=== PATIENT | male | born 1950 | race Caucasian/White ===

== ENCOUNTER 2023-06-03 23:11 | Inpatient (IN) | payer MEDICARE, OTHER ==
[~2023-06-03] VITALS: Ht 175.3 cm; Wt 122.5 kg
[2023-06-03] MEDS ORDERED: CLOP75TA15 PO (23:31)
[2023-06-03 23:57] LABS: BASOPHILS % (AUTO) 0.3 % (0.0-2.0); EOSINOPHILS # (AUTO) 0.1 K/uL (0.0-0.7); EOSINOPHILS % (AUTO) 0.6 % (0.0-7.0); HEMATOCRIT 38.3 % (36.7-47.1); HEMOGLOBIN 12.1 g/dL (12.5-16.3); LYMPHOCYTES # (AUTO) 1.5 K/uL (0.8-4.8); LYMPHOCYTES % (AUTO) 12.9 % (20.5-51.5); MEAN CORPUSCULAR HEMOGLOBIN 32.2 uug (23.8-33.4); MEAN CORPUSCULAR HGB CONC 32 g/dL (32.5-36.3); MONOCYTES # (AUTO) 1.1 K/uL (0.1-1.30); MONOCYTES % (AUTO) 9.4 % (0.0-11.0); NEUTROPHILS # (AUTO) 8.7 K/uL (1.8-8.9); NEUTROPHILS % (AUTO) 76.8 % (38.5-71.5); PLATELET COUNT (AUTO) 96 K/uL (152-348); RED BLOOD CELL COUNT(AUTO) 3.76 MIL/uL (4.06-5.63); RED CELL DISTRIBUTION WIDTH 15.5 % (12.1-16.2); WHITE BLOOD COUNT (AUTO) 11.3 K/uL (3.6-10.2)
[2023-06-04 00:04] LABS: CALCIUM 9.3 mg/dL (8.5-10.1); CARBON DIOXIDE 26 mmol/L (21-32); CHLORIDE 105 mmol/L (98-107); CREATININE 2.4 mg/dL (0.6-1.3); GLUCOSE 90 mg/dL (74-106); POTASSIUM 4.2 mmol/L (3.5-5.1); SODIUM SERUM 139 mmol/L (136-145); UREA NITROGEN, BLOOD 41 mg/dL (7-18)
[2023-06-04 00:11] LABS: DIFFERENTIAL COMMENT 1
[2023-06-04 00:12] LABS: ALANINE AMINOTRANSFERASE 74 U/L (16-63); ALBUMIN 2.9 g/dL (3.4-5.0); ALKALINE PHOSPHATASE 137 U/L (50-136); ASPARTATE AMINOTRANSFERASE 47 U/L (15-37); BILIRUBIN,DIRECT 0.4 mg/dL (0.0-0.2); BILIRUBIN,TOTAL 0.7 mg/dL (0.2-1.0); TOTAL PROTEIN, SERUM 7.2 g/dL (6.4-8.2)
[2023-06-04] MEDS ORDERED: IV NS 1000 ML 1,000 ML IV ONE (02:00)
[2023-06-04 02:12] LABS: ETHANOL < 3 MG/DL (0-10)
[2023-06-04 10:19] LABS: *BILIRUBIN,URIN NEGATIVE (NEGATIVE); *BLOOD, URINE 1+ (NEGATIVE); *CLARITY,URINE CLEAR (CLEAR); *COLOR,URINE YELLOW (YELLOW); *KETONES,URINE NEGATIVE (NEGATIVE); *PROTEIN,URINE 2+ (NEGATIVE); *UROBILINOGEN,URINE 0.2 E.U./dl (NORMAL); LEUKOCYTE ESTERASE ,URINE 1+ (NEGATIVE); NITRITE, URINE POSITIVE (NEGATIVE); UGLUCOSE NEGATIVE (NEGATIVE)
[2023-06-04 11:04] LABS: BACTERIA,URINE MANY /HPF (NONE SEEN); SQUAMOUS EPITHELIAL CELL,UR FEW /HPF (NONE SEEN); WBC,URINE 20-50 /HPF (0-3)
[2023-06-04] MEDS ORDERED: LOPERAMIDE HCL 2 MG CAPSULE PO ONE (14:00)
[2023-06-04] MEDS ORDERED: LOPERAMIDE HCL 2 MG CAPSULE ONE (14:15)
[2023-06-04 16:04] VITALS: BP 152/72; TEMP 98.9; O2SAT 96
[2023-06-04] MEDS ORDERED: ACETAMINOPHEN 325 MG TABLET PO PRN (16:15)
[2023-06-04] MEDS ORDERED: ONDANSETRON 4 MG/2 ML VIAL IV PRN (16:15)
[2023-06-04] MEDS ORDERED: OMEG-49 PO (16:20)
[2023-06-04] MEDS ORDERED: ATOR40TA PO (16:29)
[2023-06-04] MEDS ORDERED: AMIO100T4 PO (16:29)
[2023-06-04] MEDS ORDERED: CARV12.5 PO (16:29)
[2023-06-04] MEDS ORDERED: ASCO500P18 PO (16:29)
[2023-06-04] MEDS ORDERED: ALLO100T PO (16:29)
[2023-06-04] MEDS ORDERED: FURO-151 PO (16:29)
[2023-06-04] MEDS ORDERED: LOSA25TA27 PO (16:29)
[2023-06-04] MEDS ORDERED: HYDR-894 PO (16:29)
[2023-06-04] MEDS ORDERED: ALPR0.5T8 PO (16:29)
[2023-06-04] MEDS ORDERED: PATI8.4P PO (16:36)
[2023-06-04] MEDS ORDERED: HYDR4TAB4 PO (16:36)
[2023-06-04] MEDS ORDERED: ASCO500T85 PO (16:39)
[2023-06-04] MEDS ORDERED: CYAN100085 PO (16:40)
[2023-06-04] MEDS: IV 1/2NS 1000 ML 1,000 ML IV PRN (17:02)
[2023-06-04] MEDS ORDERED: hydrALAZINE HCL 25 MG TABLET PO SCH (17:45)
[2023-06-04 20:00] VITALS: BP 102/58; TEMP 98.4; O2SAT 94
[2023-06-04] MEDS ORDERED: CARVEDILOL 6.25 MG TABLET PO SCH (21:00)
[2023-06-04] MEDS ORDERED: CEFTRIAXONE 1 G in IV DEXTROSE 5% 50 ML IV SCH (21:16)
[2023-06-04] MEDS: HYDROMORPHONE HCL 2 MG TABLET PO PRN (21:26)
[2023-06-04] MEDS: ATORVASTATIN 40 MG TABLET PO SCH (21:26)
[2023-06-04] MEDS ORDERED: CEFTRIAXONE /D5W 50ML IVPB **ER PYXIS IV ONE (21:49)
[2023-06-05] MEDS: ALPRAZOLAM 0.5 MG TABLET PO PRN (00:24)
[2023-06-05] MEDS: HYDROMORPHONE HCL 2 MG TABLET PO PRN ×2 (03:41→13:40)
[2023-06-05 04:00] VITALS: BP 125/73; TEMP 98.2; O2SAT 96
[2023-06-05] MEDS: IV 1/2NS 1000 ML 1,000 ML IV PRN (04:38)
[2023-06-05] MEDS: PANTOPRAZOLE SODIUM 40 MG TABLET.DR PO SCH (06:23)
[2023-06-05 07:04] LABS: BASOPHILS % (AUTO) 0.3 % (0.0-2.0); EOSINOPHILS # (AUTO) 0.1 K/uL (0.0-0.7); EOSINOPHILS % (AUTO) 0.9 % (0.0-7.0); HEMATOCRIT 36.8 % (36.7-47.1); LYMPHOCYTES # (AUTO) 1.7 K/uL (0.8-4.8); LYMPHOCYTES % (AUTO) 18.7 % (20.5-51.5); MEAN CORPUSCULAR HEMOGLOBIN 32.8 uug (23.8-33.4); MEAN CORPUSCULAR HGB CONC 33 g/dL (32.5-36.3); MEAN CORPUSCULAR VOLUME 100.6 fL (73.0-96.2); MONOCYTES # (AUTO) 0.7 K/uL (0.1-1.30); NEUTROPHILS # (AUTO) 6.7 K/uL (1.8-8.9); NEUTROPHILS % (AUTO) 72.1 % (38.5-71.5); PLATELET COUNT (AUTO) 92 K/uL (152-348); RED BLOOD CELL COUNT(AUTO) 3.66 MIL/uL (4.06-5.63); RED CELL DISTRIBUTION WIDTH 15.2 % (12.1-16.2); WHITE BLOOD COUNT (AUTO) 9.3 K/uL (3.6-10.2)
[2023-06-05 07:12] LABS: DIFFERENTIAL COMMENT 1
[2023-06-05 07:31] LABS: THYROID STIMULATING HORMONE 0.432 mIU/mL (0.358-3.740)
[2023-06-05 07:47] LABS: ALANINE AMINOTRANSFERASE 52 U/L (16-63); ALBUMIN 2.5 g/dL (3.4-5.0); ALKALINE PHOSPHATASE 112 U/L (50-136); ASPARTATE AMINOTRANSFERASE 30 U/L (15-37); BILIRUBIN,TOTAL 0.7 mg/dL (0.2-1.0); CALCIUM 8.6 mg/dL (8.5-10.1); CARBON DIOXIDE 25 mmol/L (21-32); CHLORIDE 108 mmol/L (98-107); CHOLESTEROL 86 mg/dL (<200); CREATININE 1.8 mg/dL (0.6-1.3); GLUCOSE 101 mg/dL (74-106); HDL CHOLESTEROL 37 mg/dL (40-60); MAGNESIUM 1.9 mg/dL (1.8-2.4); PHOSPHOROUS 2.4 mg/dL (2.5-4.9); SODIUM SERUM 141 mmol/L (136-145); TOTAL PROTEIN, SERUM 6.6 g/dL (6.4-8.2); TRIGLYCERIDES 63 MG/DL (30-150); UREA NITROGEN, BLOOD 26 mg/dL (7-18)
[2023-06-05 08:30] VITALS: BP 134/74; TEMP 98.6
[2023-06-05] MEDS: OMEGA-3 FATTY ACIDS/FISH OIL CAPSULE PO SCH (08:51)
[2023-06-05] MEDS: AMIODARONE HCL 200 MG TABLET PO SCH (08:51)
[2023-06-05] MEDS: ASPIRIN EC 81 MG TABLET.DR PO SCH (08:52)
[2023-06-05] MEDS: CYANOCOBALAMIN 1,000 MCG TABLET PO SCH (08:52)
[2023-06-05] MEDS: CLOPIDOGREL 75 MG TABLET PO SCH (08:59)
[2023-06-05] MEDS: CARVEDILOL 12.5 MG TABLET PO SCH ×2 (08:59→17:21)
[2023-06-05] MEDS ORDERED: CARVEDILOL 6.25 MG TABLET PO SCH (09:00)
[2023-06-05] MEDS: ALLOPURINOL 100 MG TABLET PO SCH (09:01)
[2023-06-05] MEDS: ASCORBIC ACID 500 MG TABLET PO SCH (09:02)
[2023-06-05 11:11] VITALS: BP 120/64; TEMP 98.3; O2SAT 95
[2023-06-05] MEDS: HYDROCODONE/APAP 5-325MG TABLET PO PRN (11:30)
[2023-06-05 15:46] VITALS: BP 115/51; TEMP 98.5; O2SAT 97
[2023-06-05] MEDS ORDERED: NEUTRA PHOS PACKET PO ONE (17:00)
[2023-06-05 19:51] VITALS: BP_SYST 118; BP_SYST 133; BP_DIAS 66; BP_DIAS 72; TEMP 97.5; O2SAT 98
[2023-06-05] MEDS: CEFTRIAXONE 2 G in IV DEXTROSE 5% 100 ML IV SCH (20:18)
[2023-06-05] MEDS: ATORVASTATIN 40 MG TABLET PO SCH (20:18)
[2023-06-06 00:04] VITALS: BP 112/58; TEMP 97.8; O2SAT 95
[2023-06-06] MEDS: HYDROMORPHONE HCL 2 MG TABLET PO PRN ×2 (01:54→20:26)
[2023-06-06] MEDS: IV 1/2NS 1000 ML 1,000 ML IV PRN (03:13)
[2023-06-06 05:52] VITALS: BP 131/60; TEMP 97.9; O2SAT 96
[2023-06-06] MEDS: PANTOPRAZOLE SODIUM 40 MG TABLET.DR PO SCH (06:07)
[2023-06-06 07:42] LABS: BASOPHILS % (AUTO) 0.5 % (0.0-2.0); EOSINOPHILS # (AUTO) 0.2 K/uL (0.0-0.7); EOSINOPHILS % (AUTO) 2.1 % (0.0-7.0); HEMATOCRIT 36.2 % (36.7-47.1); HEMOGLOBIN 11.9 g/dL (12.5-16.3); LYMPHOCYTES # (AUTO) 1.4 K/uL (0.8-4.8); LYMPHOCYTES % (AUTO) 18.5 % (20.5-51.5); MEAN CORPUSCULAR HEMOGLOBIN 33.2 uug (23.8-33.4); MEAN CORPUSCULAR HGB CONC 33 g/dL (32.5-36.3); MEAN CORPUSCULAR VOLUME 101.2 fL (73.0-96.2); MONOCYTES # (AUTO) 0.6 K/uL (0.1-1.30); MONOCYTES % (AUTO) 7.4 % (0.0-11.0); NEUTROPHILS # (AUTO) 5.4 K/uL (1.8-8.9); NEUTROPHILS % (AUTO) 71.5 % (38.5-71.5); PLATELET COUNT (AUTO) 91 K/uL (152-348); RED BLOOD CELL COUNT(AUTO) 3.57 MIL/uL (4.06-5.63); RED CELL DISTRIBUTION WIDTH 15.2 % (12.1-16.2); WHITE BLOOD COUNT (AUTO) 7.5 K/uL (3.6-10.2)
[2023-06-06 07:44] LABS: CALCIUM 8.2 mg/dL (8.5-10.1); CARBON DIOXIDE 25 mmol/L (21-32); CHLORIDE 106 mmol/L (98-107); CREATININE 1.6 mg/dL (0.6-1.3); GLUCOSE 91 mg/dL (74-106); MAGNESIUM 1.9 mg/dL (1.8-2.4); PHOSPHOROUS 2.8 mg/dL (2.5-4.9); SODIUM SERUM 139 mmol/L (136-145); UREA NITROGEN, BLOOD 21 mg/dL (7-18)
[2023-06-06 07:48] LABS: DIFFERENTIAL COMMENT 1
[2023-06-06] MEDS: ALLOPURINOL 100 MG TABLET PO SCH (08:16)
[2023-06-06] MEDS: CLOPIDOGREL 75 MG TABLET PO SCH (08:16)
[2023-06-06] MEDS: CARVEDILOL 12.5 MG TABLET PO SCH ×2 (08:16→17:22)
[2023-06-06] MEDS: OMEGA-3 FATTY ACIDS/FISH OIL CAPSULE PO SCH (08:16)
[2023-06-06] MEDS: CYANOCOBALAMIN 1,000 MCG TABLET PO SCH (08:16)
[2023-06-06] MEDS: ASCORBIC ACID 500 MG TABLET PO SCH (08:17)
[2023-06-06] MEDS: ASPIRIN EC 81 MG TABLET.DR PO SCH (08:17)
[2023-06-06] MEDS: HYDROCODONE/APAP 5-325MG TABLET PO PRN ×2 (08:17→12:47)
[2023-06-06] MEDS: AMIODARONE HCL 200 MG TABLET PO SCH (08:19)
[2023-06-06 12:00] VITALS: BP 121/52; TEMP 97.9; O2SAT 98
[2023-06-06 15:27] VITALS: BP 126/52; TEMP 97.7; O2SAT 98
[2023-06-06 20:00] VITALS: BP 127/54; TEMP 98.5; O2SAT 96
[2023-06-06] MEDS: ATORVASTATIN 40 MG TABLET PO SCH (20:20)
[2023-06-06] MEDS: CEFTRIAXONE 2 G in IV DEXTROSE 5% 100 ML IV SCH (20:20)
[2023-06-06] MEDS: ALPRAZOLAM 0.5 MG TABLET PO PRN (22:26)
[2023-06-07] VITALS: BP 131/56; TEMP 98; O2SAT 96
[2023-06-07 04:00] VITALS: BP 110/56; TEMP 98.4; O2SAT 96
[2023-06-07] MEDS: PANTOPRAZOLE SODIUM 40 MG TABLET.DR PO SCH (06:11)
[2023-06-07] MEDS: CYANOCOBALAMIN 1,000 MCG TABLET PO SCH (08:16)
[2023-06-07] MEDS: HYDROCODONE/APAP 5-325MG TABLET PO PRN (08:17)
[2023-06-07] MEDS: OMEGA-3 FATTY ACIDS/FISH OIL CAPSULE PO SCH (08:17)
[2023-06-07] MEDS: CLOPIDOGREL 75 MG TABLET PO SCH (08:17)
[2023-06-07] MEDS: ASCORBIC ACID 500 MG TABLET PO SCH (08:17)
[2023-06-07] MEDS: ALLOPURINOL 100 MG TABLET PO SCH (08:17)
[2023-06-07] MEDS: ASPIRIN EC 81 MG TABLET.DR PO SCH (08:17)
[2023-06-07] MEDS: CARVEDILOL 12.5 MG TABLET PO SCH (08:18)
[2023-06-07] MEDS: AMIODARONE HCL 200 MG TABLET PO SCH (08:18)
[2023-06-07] MEDS ORDERED: FUROSEMIDE 40 MG TABLET PO SCH (09:00)
[2023-06-07] MEDS ORDERED: LOSARTAN POTASSIUM 25 MG TABLET PO SCH (09:00)
[2023-06-07 11:31] VITALS: BP 107/41; TEMP 97.6; O2SAT 95
[2023-06-07] MEDS ORDERED: LOSA25TA27 PO (14:18)
[2023-06-07] MEDS ORDERED: ATOR10TA PO (14:18)
[2023-06-07] MEDS ORDERED: PANT40TA49 PO (14:18)
[2023-06-07] MEDS ORDERED: CARV6.25 PO (14:18)
[2023-06-07] MEDS ORDERED: FURO40TA5 PO (14:18)
[2023-06-07] MEDS ORDERED: ASPI-618 PO (14:18)
[2023-06-07] MEDS: HYDROMORPHONE HCL 2 MG TABLET PO PRN (15:28)
== END 2023-06-07 16:45 | disposition home health service (06) | DRG 682 ==
LOC: ER 23:13 → MEDSURG3 06-04 15:00 → TELE3 06-04 18:00
PROVIDERS: ADMIT Internal Medicine; ATTEND Internal Medicine
PROC: 02HV33Z Insertion of Infusion Device into Superior Vena Cava, Percutaneous Approach (ICD-10-PCS; principal; 2023-06-05)
PROC: B548ZZA Ultrasonography of Superior Vena Cava, Guidance (ICD-10-PCS; 2023-06-05)
DX: N17.0 Acute kidney failure with tubular necrosis (principal); I50.23 Acute on chronic systolic (congestive) heart failure; N39.0 Urinary tract infection, site not specified; D68.69 Other thrombophilia; E44.0 Moderate protein-calorie malnutrition; I13.0 Hypertensive heart and chronic kidney disease with heart failure and stage 1 through stage 4 chronic kidney disease, or unspecified chronic kidney disease; I42.9 Cardiomyopathy, unspecified; I47.20 Ventricular tachycardia, unspecified; E78.5 Hyperlipidemia, unspecified; E66.9 Obesity, unspecified; I25.10 Atherosclerotic heart disease of native coronary artery without angina pectoris; I25.2 Old myocardial infarction; K59.00 Constipation, unspecified; N18.9 Chronic kidney disease, unspecified; Z20.822 Contact with and (suspected) exposure to COVID-19; R53.1 Weakness; Z74.09 Other reduced mobility; Z68.39 Body mass index [BMI] 39.0-39.9, adult; W19.XXXA Unspecified fall, initial encounter; Y93.9 Activity, unspecified; Y92.009 Unspecified place in unspecified non-institutional (private) residence as the place of occurrence of the external cause; I73.9 Peripheral vascular disease, unspecified; M16.11 Unilateral primary osteoarthritis, right hip; M17.11 Unilateral primary osteoarthritis, right knee; Z87.891 Personal history of nicotine dependence; Z95.5 Presence of coronary angioplasty implant and graft; Z95.810 Presence of automatic (implantable) cardiac defibrillator
CPT/HCPCS: 36415; 70450; 71045; 73020; 73502; 73560; 83735; 84100; 84443; 84484; 85025; 93005; 93307; G0378; G0480; J0696; J7040; J8499